=== PATIENT | female | born 1965 | race Caucasian/White ===

== ENCOUNTER 2017-01-28 14:00 | Day surgery (SDC) | payer OTHER ==
[~2017-01-28] VITALS: Ht 162.6 cm; Wt 67.0 kg
[2017-01-28] MEDS ORDERED: MVI (15:10)
[2017-01-28] MEDS ORDERED: ARMOUR THYROID (15:10)
[2017-01-28 15:12] VITALS: Ht 162.6 cm; Wt 67.0 kg
[2017-01-28 15:50] VITALS: BP 115/74; PULSE 57; RESP 18
[2017-01-28] MEDS ORDERED: FENTAnyl 50 MCG/ML VIAL ONE ×2 (15:58→16:19)
[2017-01-28] MEDS ORDERED: MIDAZOLAM 1 MG/ML 2 ML INJ ONE ×2 (15:58)
[2017-01-28] MEDS ORDERED: KETAMINE 500 MG INJ ONE (16:01)
[2017-01-28 16:49] VITALS: BP 124/59; PULSE 58; RESP 12
--- NOTE | 2017-01-28 17:32 | GILP ---
DATE OF PROCEDURE: 01/28/2017 PROCEDURE: Esophagogastroduodenoscopy with biopsies. PREMEDICATION: Monitored anesthesia care by anesthesiologist. SURGEON: Marcus Sanchez MD INSTRUMENT USED: Olympus panendoscope. TECHNIQUE: After informed consent, with the patient/relatives understanding the procedure, its indic ations, potential risks and complications, including but not limited to: allergic reaction, bleeding , perforation or infection, and after all pertinent questions were answered to the patients satisfac tion, the patient/relatives signed witnessed informed consent. Following this, premedication was administered slowly IV push under careful cardiovascular and respi ratory monitoring with pulse oximetry, automatic blood pressure and front desk monitor. Once the sedative effect was achieved the patient was place in the left lateral decubitus, the panen doscope was introduced and advanced under visual control. Careful examination of the upper gastrointestinal tract, both on insertion as well as withdrawal of the instrument disclosed the following findings: ESOPHAGUS: The distal esophagus shows erythema and edema of the mucosa of a moderate degree. Biops ies were obtained to rule out Britton esophagus. Biopsies were obtained to rule out eosinophilic es ophagitis as well. STOMACH: Upon entrance to the stomach, air was insufflated, the gastric chua distended normally. The mucosa of the fundus, body, and antrum of the stomach shows erythema and edema of a moderate deg ree. Biopsies were obtained to rule out H. pylori infection. PYLORUS: The pylorus appears patent and within normal limits, with no evidence of gastric outlet ob struction. DUODENUM: The duodenal mucosa was carefully examined in the duodenal bulb as well as the second por tion of the duodenum and appears unremarkable with no evidence of duodenitis, ulcer or neoplasm. The instrument was then withdrawn, the patient tolerated the procedure well and was transfer out of the endoscopy suite awake, and in good condition to continue recovery under observation IMPRESSION: 1. Distal esophagitis with proximal displacement of the EG junction, rule out Britton's esophagus. Biopsies obtained. 2. Rule out eosinophilic esophagitis. Multiple rings in the mid esophagus. 3. Gastritis. Rule out Helicobacter pylori infection. Biopsies obtained. PLAN: The patient will be treated with PPIs. Further recommendation will depend on her clinical co urse as well as review of biopsies. Dictated By: MARCUS SANCHEZ MS/SYLVIE Conf#: [id number] [facility]#: [id number]
--- NOTE | 2017-01-28 20:28 | GILP ---
DATE OF PROCEDURE: NAME OF PROCEDURE: Colonoscopy to cecum with biopsies. Enteroscopy with biopsies. SURGEON: Rl Sanchez MD. PREMEDICATION: Monitored anesthesia care by anesthesiologist. INSTRUMENT USED: Olympus colonoscope. PREPARATION: Adequate. TECHNIQUE: After informed consent, with the patient/relatives understanding the procedure, its indic ations potential risks and complications, including but not limited to: allergic reaction, bleeding, perforation, infection, missed lesions, and after all pertinent questions were answered to the vi ent's satisfaction, the patient/relatives signed the witnessed informed consent. Following this, premedication was administered slowly IV push by under careful cardiovascular and re spiratory monitoring with pulse oximetry, automatic blood pressure and court monitor. Once the sedati ve effect was achieved, the patient was placed in the left lateral decubitus position, digital recta l examination was performed. The colonoscope was then introduced and advanced under visual control throughout all segments of the colon including: the rectum, sigmoid, descending colon, splenic flexu re, transverse colon, hepatic flexure, ascending colon and finally reaching the cecum which was naveen rly identified by transillumination, finger indentation and the ileocecal valve. Careful examinatio n of the mucosa of the lower gastrointestinal tract both on insertion as well as withdrawal of the i nstrument disclosed the following findings: Rectal Examination: No evidence of perirectal disease, no masses. Colonic Mucosa: The colonic mucosa entirely unremarkable throughout. The ileocecal valve was clear ly identified and the terminal ileum was visualized. Terminal ileum appears somewhat nodular. The instrument was introduced and we examined approximately 15 os terminal ileum, which appeared somewha t nodular. Biopsies were obtained. The instrument was withdrawn and biopsies were obtained randoml y in the right and left side of the colon to rule out microscopic, lymphocytic, or collagenous colit is as well as underlying inflammatory bowel disease. Moderate sized internal hemorrhoids are noted on withdrawal of the instrument through the anal canal. The instrument was then withdrawn, the patient tolerated the procedure well and was transferred out of the Endoscopy Suite awake and in good condition to continue recovery under observation. IMPRESSION: 1. Nodular ileum. Biopsies obtained to rule out inflammatory bowel disease. 2. Normal colonic mucosa. Rule out microscopic, lymphocytic, or collagenous colitis. Biopsies obt ained. 3. Moderate-sized internal hemorrhoids. 4. Family history of colon cancer. PLAN: The patient will be followed up as an outpatient. Pathology will be reviewed as soon as butch ndiaye. Screening colonoscopy in 5 years due to her high risk status is recommended. Annual Hemoccu lt stool testing is recommended as well. Dictated By: RL SANCHEZ MS/SYLVIE Conf#: [id number] DID#: [id number] CC: RL SANCHEZ;*EndCC*
== END 2017-01-28 17:03 | disposition home or self-care (01) ==
LOC: GIL 14:00
PROVIDERS: ATTEND Internal Medicine Gastroenterology
DX: K20.8 Other esophagitis (principal); E03.9 Hypothyroidism, unspecified; K64.8 Other hemorrhoids; Z80.0 Family history of malignant neoplasm of digestive organs
CPT/HCPCS: 43239; 45380; 88305; 88312; 88313; J2250; J3010; Z7610

== ENCOUNTER 2018-01-15 11:58 | Day surgery (SDC) | END 2018-01-15 20:00 | disposition home or self-care (01) ==